=== PATIENT | male | born 1990 | race Caucasian/White ===

== ENCOUNTER 2020-02-13 11:44 | Emergency (ER) | payer MEDICAID ==
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
== END 2020-02-13 17:13 | disposition home or self-care (01) ==
LOC: JP.ED 11:44
DX: F32.9 Major depressive disorder, single episode, unspecified (principal); F41.9 Anxiety disorder, unspecified; F98.8 Other specified behavioral and emotional disorders with onset usually occurring in childhood and adolescence; Z79.899 Other long term (current) drug therapy
CPT/HCPCS: 36415; 80307; 85025; 99284